=== PATIENT | male | born 1975 | race Caucasian/White ===

== ENCOUNTER 2021-08-11 13:19 | Emergency (ER) | payer OTHER ==
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
[2021-08-11] MEDS ORDERED: TETANUS/DIPHTHERIA/PERTUSSIS 0.5 ML SYRINGE IM ONE (14:40)
[2021-08-11 14:57] VITALS: BP 130/78
== END 2021-08-11 14:56 | disposition home or self-care (01) ==
LOC: ED 13:19
DX: S81.811A Laceration without foreign body, right lower leg, initial encounter (principal); W26.8XXA Contact with other sharp object(s), not elsewhere classified, initial encounter
CPT/HCPCS: 12001; 90471; 99282; 99283